=== PATIENT | male | born 1965 ===

== ENCOUNTER → 2020-07-15 10:06 | Outpatient (ROUT) | payer SELFPAY ==
[2020-07-15 11:14] LABS: COVID19 -Nasal RAPID Negative (Negative)
== END ==
PROVIDERS: Visit Provider Family Medicine
DX: R50.9 Fever, unspecified (principal); R06.02 Shortness of breath; Z20.828 Contact with and (suspected) exposure to other viral communicable diseases
CPT/HCPCS: 87635

== ENCOUNTER → 2021-03-10 12:25 | Outpatient (ROUT) | payer SELFPAY ==
[2021-03-10 12:55] LABS: COVID19 -Nasal RAPID Negative (Negative)
== END ==
PROVIDERS: Visit Provider Family Medicine
DX: Z20.822 Contact with and (suspected) exposure to COVID-19 (principal)
CPT/HCPCS: 87635